=== PATIENT | male | born 1950 ===

== ENCOUNTER 2023-09-12 09:26 | Day surgery (SDC) | payer OTHER ==
[2023-09-05 10:37] LABS: URINE APPEARANCE Clear; URINE BILIRRUBIN Negative (NEGATIVE); URINE BLOOD Negative; URINE COLOR Yellow; URINE GLUCOSE Negative (NEGATIVE); URINE LEUKOCYTE Negative; URINE NITRATE Negative; URINE PROTEIN Negative (NEGATIVE); URINE UROBILINOGEN 0.2 E.U./dl
[2023-09-05 10:40] LABS: URINE BACTERIA 6.2 uL (0.0-1933)
[2023-09-05 10:43] LABS: URINE EPITHELIAL CELLS 1.2 uL (0.0-38.8); URINE RBC 1.1 uL (0.0-20.8); URINE WBC 1.3 uL (0.0-23.2)
[2023-09-05 11:00] LABS: HEMATOCRIT 42.2 % (39.0-48.0); HEMOGLOBIN 13.6 g/dL (13-16.00); MEAN CORPUSCULAR HEMOGLOBIN 20.7 pg (27.00-32.0); MEAN CORPUSCULAR HGB CONC 32.2 g/dl (32.0-36.0); RED BLOOD COUNT 6.56 M/uL (4.00-6.00); RED CELL DISTRIBUTION WIDTH 17.2 % (11.5-14.5)
[2023-09-05 11:01] LABS: MEAN CELL VOLUME 64.3 fL (80.0-100.00); PLATELET COUNT 104 K/uL (150-450)
[2023-09-05 11:08] LABS: INR 1.04; PARTIAL THROMBOPLASTIN TIME 29.3 SECONDS (22.0-34.0); PROTHROMBIN TIME 10.9 SECONDS (9.0-11.5)
[2023-09-05 11:12] LABS: ALBUMIN 4.4 gm/dL (3.4-5.0); BILIRUBIN TOTAL 0.6 mg/dL (0.3-1.2); CALCIUM 9.3 mg/dL (8.5-10.1); CREATININE SERUM 0.9 mg/dL (0.70-1.30); GFR 82.71; GLOBULINA 3.6 G/DL (2.4-3.5); POTASSIUM 5.09 mEq/L (3.5-5.1)
[~2023-09-12] VITALS: Ht 175.3 cm; Wt 67.1 kg
== END 2023-09-12 15:55 | disposition home or self-care (01) ==
LOC: CIR.AMB 09:26
PROVIDERS: ATTEND Orthopaedic Surgery
DX: M70.22 Olecranon bursitis, left elbow (principal); Z20.822 Contact with and (suspected) exposure to COVID-19